=== PATIENT | female | born 1990 | race African-American/Black ===

== ENCOUNTER 2019-09-25 09:34 | Outpatient (CLI) | payer BC, SELFPAY ==
[2019-09-25 10:33] LABS: Thyroid Stimulating Hormone 0.468 uIU/mL (0.465-4.680)
[2019-09-25 10:50] LABS: Free T4 Free Thyroxine 0.82 ng/mL (0.78-2.19)
[2019-09-29 05:32] LABS: Triiodothyronine T3 Free 3.2 pg/mL (2.3-4.2)
== END 2019-09-25 09:35 | disposition home or self-care (01) ==
PROVIDERS: Visit Provider Obstetrics & Gynecology
DX: E07.9 Disorder of thyroid, unspecified (principal)
CPT/HCPCS: 36415; 84439; 84443; 84481

== ENCOUNTER → 2019-09-29 12:49 | Outpatient (CLI) | payer BC, SELFPAY ==
--- NOTE | ~2019-09-29 | US_ITS ---
EXAMINATION: US thyroid DATE: 09/29/2019 13:05 INDICATION: Disorder of thyroid TECHNIQUE: Multiple ultrasound images of the thyroid were obtained. COMPARISON: None. FINDINGS: The right thyroid lobe measures 6.8 x 2.0 x 2.6 cm. The left thyroid lobe measures 6.2 x 2.1 x 2.6 c m. 9.5 mm wider than tall solid hypoechoic nodule with ill-defined margins and without echogenic foc i (TI-RADS 4, moderately suspicious , FNA if >=1.5 cm, annual followup is >1 cm) at the inferior left thyroid. There are multiple 6 mm or smaller wider than tall likely cystic nodules which are anechoi c/near anechoic with smooth margins. A few demonstrate peripheral echogenic foci with appearance typi sona for inspissated colloid. There is normal echotexture, echogenicity and vascular flow throughout t he remainder of the thyroid gland. IMPRESSION: 1. Multiple bilateral thyroid nodules, the largest a 9.5 mm TI RADS 4 nodule which does not meet cons ensus criteria for either biopsy or follow-up. Reviewed, dictated and finalized at location A. IMPRESSION: 1. Multiple bilateral thyroid nodules, the largest a 9.5 mm TI RADS 4 nodule wh ich does not meet consensus criteria for either biopsy or follow-up.
== END ==
PROVIDERS: Visit Provider Obstetrics & Gynecology
DX: E04.2 Nontoxic multinodular goiter (principal)
CPT/HCPCS: 76536